=== PATIENT | female | born 1960 | race Caucasian/White ===

== ENCOUNTER 2020-01-07 18:06 | Emergency (ER) | payer OTHER ==
[2020-01-07 18:40] VITALS: BP 147/95
--- NOTE | 2020-01-07 19:27 | UC ---
Eye Complaint HPI - HPI Summary HPI Summary: 59-year-old female who started experiencing some left upper eyelid swelling on Sunday of this week. Since then it has become and more tender however just prior to arrival she states she thinks it started draining. - History of Current Complaint Chief Complaint: [place]CSkin Stated Complaint: EYE COMPLAINT Time Seen by Provider: 01/07/20 19:03 Hx Obtained From: Patient ?: No Onset/Duration: Gradual Onset, Lasting Days Timing: Constant Severity Initially: Mild Severity Currently: Mild Pain Intensity: 8 Location of Injury: Other - No injury Character: Dull Aggravating Factor(s): Blinking Alleviating Factor(s): Nothing Associated Signs And Symptoms: Positive: Drainage (Purulent) - Yellow purulent drainage started prior to arrival. - Allergies/Home Medications Allergies/Adverse Reactions: Allergies Allergy/AdvReac Type Severity Reaction Status Date / Time No Known Allergies Allergy Verified 01/07/20 18:35 Home Medications: Home Medications Calcium Carbonate [Calcium] 500 mg PO DAILY 01/07/20 [History Confirmed 01/07/20 ] Erythromycin OPHTH.OINT* [Ilotycin OPHTH.OINT*] 1 applic LEFT EYE BEDTIME #1 tube 01/07/20 [Rx] Escitalopram * [Lexapro *] 5 mg PO DAILY 01/07/20 [History Confirmed 01/07/20] PMH/Surg Hx/FS Hx/Imm Hx Previously Healthy: Yes - Surgical History Surgical History: Yes Surgery Procedure, Year, and Place: GALLBLADDER. WISDOM TEETH - Family History Known Family History: Positive: Unknown - Social History Occupation: Employed Full-time Lives: With Family Alcohol Use: Daily Alcohol Amount: 1 glass /day Substance Use Type: None Smoking Status (MU): Never Smoked Tobacco Review of Systems All Other Systems Reviewed And Are Negative: Yes Eyes: Positive: Drainage, Other - Left upper eyelid swollen and red. Is Patient Immunocompromised?: No Physical Exam Triage Information Reviewed: Yes Appearance: Well-Appearing, No Pain Distress, Well-Nourished Vital Signs: Initial Vital Signs Temp 98.6 F 01/07/20 18:36 Pulse 59 01/07/20 18:36 Resp 16 01/07/20 18:36 BP 147/95 01/07/20 18:36 Pulse Ox 97 01/07/20 18:36 Vital Signs Reviewed: Yes Eyes: Positive: Conjunctiva Clear, Discharge - The left upper eyelid is erythematous and swollen however the patient now has purulent drainage from what appears to be a stye at the inner canthus of the upper left eyelid., Other : - PERRLA, EOMI Musculoskeletal Exam: Normal Neurological Exam: Normal Psychological Exam: Normal Skin Exam: Normal, Other - See above notes Eye Complaint Course/Dx - Course Course Of Treatment: Patient is comfortable here. She is to continue with warm moist compresses and follow-up with her primary care provider if no improvement in 2 or 3 days. She is to go to the emergency room if she develops any orbital cellulitis or fever or change in her vision - Differential Dx/Diagnosis Provider Diagnosis: Hordeolum externum left upper eyelid Discharge ED - Sign-Out/Discharge Documenting (check all that apply): Patient Departure All imaging exams completed and their final reports reviewed: No Studies - Discharge Plan Condition: Good Disposition: HOME Prescriptions: Erythromycin OPHTH.OINT* [Ilotycin OPHTH.OINT*] 1 applic LEFT EYE BEDTIME #1 tube Patient Education Materials: Colin (ED) Referrals: Fili Cabello MD [Primary Care Provider] - Additional Instructions: Continue to apply warm moist compresses to the area 4-6 times a day for 15 minutes each time. If you have any worsening symptoms, facial swelling fever or chills or go the emergency room for further treatment. Follow-up with your primary care provider if no improvement by Sunday. - Billing Disposition and Condition Condition: GOOD Disposition: Home
== END 2020-01-07 19:52 | disposition home or self-care (01) ==
LOC: UCEAST 18:06
DX: H00.014 Hordeolum externum left upper eyelid (principal)
CPT/HCPCS: 99212; G0463